=== PATIENT | female | born 1975 | race Native Hawaiian/Other Pacific Islander ===

== ENCOUNTER 2018-02-16 13:30 | Outpatient (CLI) | payer OTHER | END 2018-02-16 22:06 | disposition home or self-care (01) | LOC: MAMMO 13:30 | DX: N63.24 Unspecified lump in the left breast, lower inner quadrant (principal) ==

== ENCOUNTER 2019-08-21 10:45 | Outpatient (CLI) | payer OTHER | END 2019-08-21 19:00 | disposition home or self-care (01) | LOC: RAD 10:45 | DX: Z01.818 Encounter for other preprocedural examination (principal) ==